=== PATIENT | female | born 1960 | race Caucasian/White ===

== ENCOUNTER 2021-05-17 10:32 | Outpatient (CLI) | payer OTHER, SELFPAY ==
[2021-05-17 13:33] LABS: Alanine Aminotransferase 28 U/L (0-33); Albumin Level 4.2 g/dL (3.5-5.2); Alkaline Phosphatase 40 IU/L (35-105); Aspartate Amino Transferase 22 U/L (0-32); Blood Urea Nitrogen 13 mg/dL (8-23); Calcium 8.9 mg/dL (8.5-10.5); Carbon Dioxide 26 mmol/L (22-29); Chloride 105 mmol/L (98-107); Globulin 1.8 g/dL (1.3-4.6); Glucose 93 mg/dL (65-115); Homocysteine 15.87; Osmolality Calculated 292 mOsm/kg (285-295); Sodium 141 mmol/L (136-145); Total Bilirubin 3.9 mg/dL (0.15-1.2); Vitamin B12 300 pg/mL (232-1245)
[2021-05-17 13:35] LABS: Anion Gap 13.6 (5-19); Haptoglobin < 10.0 mg/L (30-200); Potassium 3.6 mmol/L (3.5-5.1)
[2021-05-17 13:43] LABS: Lactate Dehydrogenase 2502 U/L (135-214)
[2021-05-17 14:12] LABS: Hemoglobin 6.9 g/dL (11.5-15.3); Mean Corpuscular HGB Conc 33.2 g/dL (30.0-36.0); Mean Corpuscular Hemoglobin 40.6 pg (28.0-34.0); Mean Corpuscular Volume 122.4 fl (81-99); Mean Platelet Volume 11.5 fL (7.4-10.4); Platelet Count 90 10^3/cmm (130-400); Red Cell Distribution Width 18.6 % (12.1-15.1); White Blood Count 3.7 10^3/uL (4.0-10.0)
[2021-05-17 14:29] LABS: Hematocrit 20.8 % (37.0-47.0)
[2021-05-17 14:30] LABS: Reticulocyte % 16.6 % (0.5-2.0)
[2021-05-17 14:37] LABS: Total Cells Counted 100 (0-100)
[2021-05-17 14:39] LABS: Absolute Segmented Neutrophil 1.4 10/cmm (1.6-7.1); Eosinophils 1 %; Lymphocytes 50 %; Monocytes Absolute 0.1 10^3/cmm (0.1-0.6); Segmented Neutrophils 37 %
[2021-05-17 14:40] LABS: Platelet Estimate Decreased (Normal); Poikilocytosis 1+; Polychromasia 1+
[2021-05-17 14:41] LABS: Anisocytosis 1+; Basophilic Stippling 1+; Macrocytosis 2+; Ovalocytes 1+; Smudge Cells Trace; Tear Drop Cells 1+
[2021-05-17 14:46] LABS: Spherocytes Trace
[2021-05-17 14:51] LABS: Absolute Neutrophil 1.4 10^3/cmm (1.4-6.5)
--- NOTE | 2021-05-17 15:59 | ONC CON_ITS ---
Dr. South New Patient Note Patient: Amrita Clark Unit #: [id number]: 1960 Dicatated By: Jaret South M.D.Date of Visit: May 17, 2021 Onc MED New Patient/Consult Referring Physician: Symone Bland N.P. Chief Complaint: Anemia. History of Present Illness: This is a 61-year-old woman with macrocytic anemia. She has a history of having been treated in the past for iron deficiency anemia. In January 2021 she was again found to be mildly anemic with hemoglobin 11.8 g and hematocrit 35.3%. At that time her red cell indices were macrocytic with MCV 118.9 and MCH 39.7. The white blood cell count was 6900 and the platelet count was 304,000. More recently she had presented with increased fatigue and shortness of breath. Her repeat CBC on 05/03/2021 showed decrease in the hemoglobin to 7.9 g with white blood cell count 5100 and platelet count 167,000. The red cell indices were similar. Her comprehensive metabolic profile showed elevated total bilirubin at 7.1 mg/dL with mildly elevated SGOT and SGPT levels. Alkaline phosphatase was normal at 43 U/L. Her hepatitis serology was unrevealing. Her serum folate was normal at 16.4 ng/mL. Her B12 level was significantly low at 102 pg/mL. Her serum iron studies showed slightly elevated transferrin saturation at 53%. CT abdomen/pelvis showed no mild hepatic steatosis with the liver noted to be mildly enlarged. There was no evidence for intrahepatic biliary dilatation. The spleen was noted to be borderline enlarged. She was given a B12 injection on Thursday. She is seen now for further management of the anemia. She does complain that she feels tired and shaky. She is still able to do some light work. ECOG score is 1. Her appetite has not been very good. She has had weight loss in the range of 10 to 15 pounds. She thinks she may have had some slight fever. She has been having some sweating at night, but no hot flashes. She has had some mild exertional dyspnea. She does not complain of resting dyspnea, cough, or chest pain. She has had some nausea, which comes and goes. Her bowels have been loose and she says her stools look really yellow. She has not been aware of any blood in the stool. She has no complaints other than some mild stress incontinence. She says that her left hip bothers her at times. She has no other joint or bone pain. She has had a little bit of headache and she occasionally has orthostatic lightheadedness. She says her feet feel kind of numb. Past Medical History: Her medical history includes hypertension, onychomycosis, and seborrheic dermatitis. She has a history of iron deficiency anemia and a history of vertigo. Past Surgical History: Her surgical/procedural history includes appendectomy, cholecystectomy, and colonoscopy in 2020. Medications: bisoprolol/HCTZ 5-6.25 mg daily. Allergies: Clarithromycin, Prochlorperazine Edisylate, and Promethazine HCl. Social History: Ms. Clark is . She has been employed by the [employer] for many years. She is a non-smoker. She has had only rare alcohol use. Family History: Father in his 60s with lung cancer. Mother with heart disease at age 89. She has 2 brothers are still living, 1 of whom has a pacemaker. She has 1 sister who has diabetes. Review Of Symptoms: Constitutional - She has been feeling tired and shaky particularly in the legs. She is able to do some light work. Her appetite has not been very good. She has had a weight loss in the range of 10 to 15 pounds. She thinks she may have had some slight fever. She has been having some sweating at night. She does not complain of having hot flashes. ECOG score is 1, Eyes - No change in vision, ENMT - No hearing loss or tinnitus. No sinus congestion/drainage. She feels like her mouth is coated and she has dry throat. No difficulty swallowing, Hematologic/Lymphatic - No abnormal bruising or bleeding, Respiratory - No shortness of breath. No cough. No pleuritic pain or hemoptysis, Cardiovascular - No angina pain. No palpitations, Gastrointestinal - She has nausea which comes and goes. No heartburn or acid reflux. Her stools have been loose and real yellow. She has not been aware of any blood in the stool or black stools, Genitourinary (F) - No dysuria or hematuria. No urinary frequency. She has mild stress incontinence, Musculoskeletal - She says her left hip bothers her at times. She has no other joint or bone pain, Integumentary - She has dry skin and she also has seborrhea, Neurologic - She has had a little bit of headache. She occasionally has orthostatic lightheadedness. She says her feet feel kind of numb, Psychiatric - No anxiety or depression. She has difficulty sleeping. Vital Signs: Performed on May 17, 2021 10:51: 5, 0, 36.56 (HIGH), 2.29 sq.m, 69.5 in, 99 %, 61 /min, 18 /min, 132/83 mm(hg), 99.2 F (HIGH), and 251.2 lbs (HIGH). Physical Examination: Constitutional - She does not appear acutely ill, Eyes - She does appear mildly icteric. Conjunctivae clear, ENMT - No lesions noted in the oral cavity, Neck - No mass or thyromegaly, Hematologic/Lymphatic - No cervical, clavicular, or axillary adenopathy, Respiratory - Lungs are clear with good air movement bilaterally, Cardiovascular - Heart rhythm is regular. There is no murmur, gallop, or rub noted, Abdomen - Soft and non-tender. Liver and spleen are not enlarged. There is no abdominal mass or ascites noted and there is no inguinal adenopathy, Back/Spine - No spine or CVA tenderness noted, Extremities - No edema. Pedal pulses are palpable bilaterally, Integumentary - No rashes. No suspicious skin lesions noted, Neurologic - No focal neurologic deficits noted. Problem List: 1. Macrocytic anemia. 2. Hypertension. 3. Seborrheic dermatitis. Problems Addressed with this Encounter and Plan: Patient with macrocytic anemia. She likely has B12 deficiency, presumably pernicious anemia. There is also concern about possible hemolysis, though it may just reflect ineffective erythropoiesis associated with the B12 deficiency. She received an initial B12 injection 5 days ago. At this point she will have additional laboratory studies to include CBC, typenex, comprehensive metabolic profile, reticulocyte count, LDH level, haptoglobin level, and direct bilirubin level. I also will repeat a B12 level along with MMA and homocystine levels, and I will check an intrinsic factor blocking antibody titer. In addition, I will review the blood smear. She will have further evaluation as indicated. If she is showing response, she can just continue with her B12 replacement as ordered. Signed By: Jaret South M.D. <<Signature on File>>
[2021-05-17 16:31] LABS: LAB Peripheral Smear Sent for Review
[2021-05-23 16:03] LABS: Methylmalonic Acid 16078 nmol/L (87-318)
== END 2021-05-17 10:33 | disposition home or self-care (01) ==
LOC: ONCMED 10:37
PROVIDERS: PCP Family Medicine; Visit Provider Internal Medicine Medical Oncology
DX: D53.9 Nutritional anemia, unspecified (principal); I10 Essential (primary) hypertension; L21.9 Seborrheic dermatitis, unspecified; Z79.899 Other long term (current) drug therapy
CPT/HCPCS: 36415; 80053; 82248; 82607; 83010; 83090; 83615; 83921; 85007; 85025; 85045; 86340; 86850; 86900; 99204

== ENCOUNTER 2021-08-06 11:28 | Outpatient (CLI) | payer OTHER, SELFPAY ==
[2021-08-06 12:31] LABS: Basophils # 0.1 10^3/uL (0.0-0.1); Basophils % 0.7 %; Eosinophils # 0.3 10^3/uL (0.0-0.8); Eosinophils % 3.4 %; Hematocrit 52.3 % (37.0-47.0); Hemoglobin 15.3 g/dL (11.5-15.3); Lymphocytes # 2.1 10^3/uL (0.8-4.8); Lymphocytes % 28.7 %; Mean Corpuscular HGB Conc 29.3 g/dL (30.0-36.0); Mean Corpuscular Hemoglobin 28.1 pg (28.0-34.0); Mean Platelet Volume 10.9 fL (7.4-10.4); Monocytes # 0.6 10^3/uL (0.2-0.9); Monocytes % 7.7 %; Neutrophils # 4.37 10^3/uL (1.8-7.7); Neutrophils % 59.2 %; Nucleated Red Blood Cells % 0 %; Platelet Count 264 10^3/cmm (130-400); Red Blood Count 5.45 10^6/uL (4.1-5.3); Red Cell Distribution Width 13.3 % (12.1-15.1); White Blood Count 7.4 10^3/uL (4.0-10.0)
[2021-08-06 12:59] LABS: Alanine Aminotransferase 21 U/L (0-33); Albumin Level 4.4 g/dL (3.5-5.2); Alkaline Phosphatase 101 IU/L (35-105); Aspartate Amino Transferase 17 U/L (0-32); Blood Urea Nitrogen 15 mg/dL (8-23); Calcium 9.9 mg/dL (8.5-10.5); Carbon Dioxide 23 mmol/L (22-29); Chloride 103 mmol/L (98-107); Globulin 2.7 g/dL (1.3-4.6); Glucose 81 mg/dL (65-115); Osmolality Calculated 290 mOsm/kg (285-295); Sodium 140 mmol/L (136-145); Total Bilirubin 0.7 mg/dL (0.15-1.2); Total Protein 7.1 g/dL (6.6-8.7)
[2021-08-06 13:32] LABS: Lactate Dehydrogenase 198 U/L (135-214)
--- NOTE | 2021-08-10 10:24 | ONC FU_ITS ---
Dr. South Patient Follow-Up Note Patient: Amrita Clark Unit #: [id number]: 1960 Dicatated By: Jaret South M.D.Date of Visit:Aug 06, 2021 Onc Med Follow-up/Prog Note Chief Complaint: Anemia. History of Present Illness: This is a 61-year-old woman with B12 deficiency anemia. She has a history of having been treated in the past for iron deficiency anemia. In January 2021 she was again found to be mildly anemic with hemoglobin 11.8 g and hematocrit 35.3%. At that time her red cell indices were macrocytic with MCV 118.9 and MCH 39.7. The white blood cell count was 6900 and the platelet count was 304,000. She had more recently presented with increased fatigue and shortness of breath. Her repeat CBC on 05/03/2021 showed decrease in the hemoglobin to 7.9 g with white blood cell count 5100 and platelet count 167,000. The red cell indices were similar. Her comprehensive metabolic profile showed elevated total bilirubin at 7.1 mg/dL with mildly elevated SGOT and SGPT levels. Alkaline phosphatase was normal at 43 U/L. Her hepatitis serology was unrevealing. Her serum folate was normal at 16.4 ng/mL. Her B12 level was significantly low at 102 pg/mL. Her serum iron studies showed slightly elevated transferrin saturation at 53%. CT abdomen/pelvis showed no mild hepatic steatosis with the liver noted to be mildly enlarged. There was no evidence for intrahepatic biliary dilatation. The spleen was noted to be borderline enlarged. I had seen her initially on 05/17/2021. She had been given a B12 injection prior to the visit. Her CBC at that point showed further decline in the hemoglobin to 6.9 g with hematocrit 20.8%. The red cell indices were macrocytic with MCV 122 and MCH 40.6. Her LDH was markedly elevated at 2502 U/L. Her total bilirubin was 3.9 mg/dL and her haptoglobin was less than 10 mg/dL, which was somewhat worrisome for hemolysis. Her B12 level had come up to 300 pg/mL. Her methylmalonic acid level came back markedly elevated at 16,078 nmol/L. Her intrinsic factor blocking easy antibody came back negative. In the meantime, she was continued on B12 injections daily for 3 days, then weekly for 4 weeks, and then monthly. Her anemia resolved gradually. As of 05/29/2021 her hemoglobin had increased to 11.3 g. She is seen for a follow-up visit. She says she still feels a little tired, but overall she is much better. She has normal activity. ECOG score is 0. Her appetite is good. She has had slight fever up to 99 degrees and she also reports having hot flashes and sweating. She complains of having dry mouth, but she has otherwise not had sore mouth or throat. She does not complain of cough, and she has not had shortness of breath or chest pain. She has no GI/ complaints other than occasional constipation. She says her muscles and joints have been a little sore. She still has a little bit of numbness in her feet. Medications: She is not on any other prescription medication. Allergies: Clarithromycin, Prochlorperazine Edisylate, and Promethazine HCl. Vital Signs: Performed on Aug 06, 2021 13:11 Height - 69.50 in BP - 147/82 mm(hg) (HIGH) Performed on Aug 06, 2021 13:10 Height - 69.50 in Weight - 250.8 lbs (LOW) BSA - 2.29 sq.m BMI - 36.51 (HIGH) Temperature - 99.0 F (HIGH) Pulse - 48 /min (LOW) Respiration - 16 /min O2 Sat - 92 % (LOW) Pain - 0 Fatigue - 0 Physical Examination: Constitutional - She looks good generally, Eyes - Sclerae nonicteric. Conjunctivae clear, ENMT - No lesions noted in the oral cavity, Hematologic/Lymphatic - No cervical, clavicular, or axillary adenopathy, Respiratory - Lungs are clear with good air movement bilaterally, Cardiovascular - Heart rhythm is regular. There is no murmur, gallop, or rub noted, Abdomen - Soft. Liver and spleen are not enlarged. There is no abdominal mass or ascites noted and there is no inguinal adenopathy, Extremities - Slight edema, Integumentary - There is an irregular pigmented lesion on the lateral aspect of the left leg, Neurologic - No focal neurologic deficits noted. Lab/Imaging: Test performed on Aug 06, 2021 12:12 LDH (Total) 198 U/L Sodium 140 mmol/L Potassium 4.0 mmol/L Chloride 103 mmol/L CO2 23 mmol/L Anion Gap 18.0 BUN 15 mg/dL Creatinine 0.6 mg/dL Cr Clearance (Est) 172.36 mL/min eGFR 101.0 mL/min Glucose 81 mg/dL Osmolality - Calculated 290 mOsm/kg Calcium 9.9 mg/dL Protein, Total 7.1 g/dL Albumin 4.4 g/dL Globulin 2.7 g/dL Bilirubin, Total 0.7 mg/dL ALT (SGPT) 21 U/L AST (SGOT) 17 U/L Alkaline Phosphatase 101 IU/L WBC 7.4 10 3/uL RBC 5.45 10 6/uL HGB 15.3 g/dL HCT 52.3 % MCV 96.0 fl MCH 28.1 pg MCHC 29.3 g/dL RDW 13.3 % Platelet Count 264 10 3/cmm MPV 10.9 fL Neutrophils 4.37 10 3/uL Lymphocytes 2.1 10 3/uL Monocytes 0.6 10 3/uL Eosinophils 0.3 10 3/uL Basophils 0.1 10 3/uL Neutrophil % 59.2 % Lymphocyte % 28.7 % Monocyte % 7.7 % Eosinophil % 3.4 % Basophils % 0.7 % NRBC % 0 % Problem List: 1. B12 deficiency anemia. 2. Hypertension. 3. Seborrheic dermatitis. Problems Addressed with this Encounter and Plan: 1. Patient with B12 deficiency anemia, presumably pernicious anemia, though her intrinsic factor blocking antibody study was negative. In any case, she has had a very good response to her B12 replacement, and she is advised to continue monthly B12 injections indefinitely. She will continue regular follow-up with Dr. Eid. I will see her again only as needed. 2. She has an irregular pigmented lesion on her left leg. It been there for a long time, but recently it has gotten a little bit bigger. It appears somewhat suspicious, and I will get her scheduled to see a welfare centre manager. Signed By: Jaret South M.D. <<Signature on File>>
== END 2021-08-06 11:29 | disposition home or self-care (01) ==
LOC: ONCMED 11:35
PROVIDERS: PCP Family Medicine; Visit Provider Internal Medicine Medical Oncology
DX: D51.3 Other dietary vitamin B12 deficiency anemia (principal); I10 Essential (primary) hypertension; L21.9 Seborrheic dermatitis, unspecified
CPT/HCPCS: 36415; 80053; 83615; 85025; 99214

== ENCOUNTER → 2021-11-05 11:10 | Outpatient (BNVA) | payer OTHER, SELFPAY | PROVIDERS: PCP Family Medicine; Referring Provider Internal Medicine Medical Oncology; Visit Provider Internal Medicine Medical Oncology | DX: D51.9 Vitamin B12 deficiency anemia, unspecified (principal) | CPT/HCPCS: 80053; 83615; 83921; 85025 ==

== ENCOUNTER → 2023-02-18 08:52 | Outpatient (BNVA) | payer MEDICARE, SELFPAY | PROVIDERS: PCP Family Medicine; Visit Provider Nurse Practitioner Family | DX: B35.3 Tinea pedis (principal); L84 Corns and callosities; L82.1 Other seborrheic keratosis; L57.0 Actinic keratosis; L71.8 Other rosacea; L21.8 Other seborrheic dermatitis; Z86.006 Personal history of melanoma in-situ | CPT/HCPCS: 17000; 99213 ==

== ENCOUNTER → 2023-03-23 10:16 | Outpatient (BNVA) | payer MEDICARE, SELFPAY | PROVIDERS: PCP Family Medicine; Visit Provider Podiatrist Foot & Ankle Surgery | DX: M21.621 Bunionette of right foot (principal); M67.472 Ganglion, left ankle and foot | CPT/HCPCS: 99203 ==

== ENCOUNTER → 2023-11-18 14:45 | Outpatient (BNVA) | payer MEDICARE, SELFPAY | PROVIDERS: PCP Family Medicine; Visit Provider Dermatology | DX: D48.5 Neoplasm of uncertain behavior of skin (principal); L57.0 Actinic keratosis; L73.8 Other specified follicular disorders; D22.0 Melanocytic nevi of lip; D23.5 Other benign neoplasm of skin of trunk; D23.61 Other benign neoplasm of skin of right upper limb, including shoulder; D23.72 Other benign neoplasm of skin of left lower limb, including hip; L91.8 Other hypertrophic disorders of the skin; B35.1 Tinea unguium; Z85.820 Personal history of malignant melanoma of skin | CPT/HCPCS: 11102; 17000; 99213 ==

== ENCOUNTER → 2023-12-24 07:48 | Outpatient (BNVA) | payer MEDICARE, SELFPAY | PROVIDERS: PCP Family Medicine; Visit Provider Dermatology | DX: D03.71 Melanoma in situ of right lower limb, including hip (principal) | CPT/HCPCS: 11602; 13121 ==

== ENCOUNTER → 2024-01-07 10:40 | Outpatient (BNVA) | payer MEDICARE, SELFPAY | PROVIDERS: PCP Family Medicine; Visit Provider Dermatology | DX: Z48.02 Encounter for removal of sutures (principal) | CPT/HCPCS: 99212 ==

== ENCOUNTER → 2024-01-27 13:36 | Outpatient (BNVA) | payer MEDICARE, SELFPAY | PROVIDERS: PCP Family Medicine; Visit Provider Dermatology | DX: Z48.817 Encounter for surgical aftercare following surgery on the skin and subcutaneous tissue (principal); B35.1 Tinea unguium; L57.0 Actinic keratosis | CPT/HCPCS: 17000; 99214 ==

== ENCOUNTER → 2024-02-18 14:11 | Outpatient (BNVA) | payer MEDICARE, SELFPAY | PROVIDERS: PCP Family Medicine; Visit Provider Dermatology | DX: L57.0 Actinic keratosis (principal); Z85.820 Personal history of malignant melanoma of skin; B35.3 Tinea pedis; B35.1 Tinea unguium; Z48.817 Encounter for surgical aftercare following surgery on the skin and subcutaneous tissue | CPT/HCPCS: 99213 ==

== ENCOUNTER → 2024-03-24 15:06 | Outpatient (BNVA) | payer MEDICARE, SELFPAY | PROVIDERS: PCP Family Medicine; Visit Provider Dermatology | DX: Z48.817 Encounter for surgical aftercare following surgery on the skin and subcutaneous tissue (principal); Z85.820 Personal history of malignant melanoma of skin | CPT/HCPCS: 99212 ==

== ENCOUNTER → 2024-04-12 13:41 | Outpatient (BNVA) | payer MEDICARE, SELFPAY | PROVIDERS: PCP Family Medicine; Visit Provider Dermatology | DX: Z85.820 Personal history of malignant melanoma of skin (principal); Z48.817 Encounter for surgical aftercare following surgery on the skin and subcutaneous tissue; L02.821 Furuncle of head [any part, except face] | CPT/HCPCS: 99213 ==

== ENCOUNTER → 2024-10-11 13:05 | Outpatient (BNVA) | payer MEDICARE, SELFPAY | PROVIDERS: PCP Family Medicine; Visit Provider Dermatology | DX: I78.8 Other diseases of capillaries (principal); D23.5 Other benign neoplasm of skin of trunk; L81.4 Other melanin hyperpigmentation; L91.8 Other hypertrophic disorders of the skin; Z08 Encounter for follow-up examination after completed treatment for malignant neoplasm; Z85.820 Personal history of malignant melanoma of skin; L57.0 Actinic keratosis | CPT/HCPCS: 17000; 99213 ==

== ENCOUNTER → 2025-04-10 09:32 | Outpatient (BNVA) | payer MEDICARE, SELFPAY | PROVIDERS: PCP Family Medicine; Visit Provider Dermatology | DX: L71.8 Other rosacea (principal); L30.4 Erythema intertrigo; L56.8 Other specified acute skin changes due to ultraviolet radiation; D23.5 Other benign neoplasm of skin of trunk; L85.1 Acquired keratosis [keratoderma] palmaris et plantaris; L81.4 Other melanin hyperpigmentation; D23.71 Other benign neoplasm of skin of right lower limb, including hip; L91.8 Other hypertrophic disorders of the skin; Z08 Encounter for follow-up examination after completed treatment for malignant neoplasm; Z85.820 Personal history of malignant melanoma of skin | CPT/HCPCS: 99214 ==